=== PATIENT | female | born 1980 | race Caucasian/White ===

== ENCOUNTER 2017-08-21 09:42 | Emergency (ER) | payer MEDICAID ==
[~2017-08-21] VITALS: Ht 172.7 cm; Wt 70.8 kg
[2017-08-21 09:46] VITALS: Ht 172.7 cm; Wt 70.8 kg
[2017-08-21 12:34] LABS: CALCIUM 8.9 mg/dL (8.5-10.1); CARBON DIOXIDE 26.3 mmol/L (21-32); CHLORIDE SERUM 106 mmol/L (98-107); CREATININE SERUM 0.5 mg/dL (0.6-1.0); GFR1 > 60 mL/min; GLUCOSE SERUM 97 mg/dL (74-106); POTASSIUM SERUM 4.4 mmol/L (3.5-5.1); SODIUM SERUM 140 mmol/L (136-145)
[2017-08-21 12:39] LABS: ALBUMIN 3.7 g/dL (3.4-5.0); ALKALINE PHOSPHATASE 43 U/L (46-116); ALT/SGPT 22 U/L (14-59); AST/SGOT 12 U/L (15-37); BILIRUBIN TOTAL 0.34 mg/dL (0.20-1.00); TOTAL PROTEIN, SERUM 7.2 g/dL (6.4-8.2)
[2017-08-21 12:40] LABS: BASOPHIL % 0.5 % (0-2); PLATELET COUNT 234 x10^3mcL (130-400); RED CELL DISTRIBUTION WIDTH 14.4 % (11.5-14.5)
[2017-08-21 13:07] LABS: AMYLASE 51 U/L (25-115); LIPASE 144 IU/L (73-393)
[2017-08-21 13:40] VITALS: BP 113/69
[2017-08-21 13:40] LABS: UA SPECIFIC GRAVITY <=1.005 (1.005-1.035); microscopic required? YES; urine erythrocyte 3+ (NEGATIVE)
== END 2017-08-21 15:37 | disposition home or self-care (01) ==
LOC: ED 09:42
PROVIDERS: Emergency Medicine
DX: R10.31 Right lower quadrant pain (principal); R11.0 Nausea
CPT/HCPCS: J1885; J2405

== ENCOUNTER 2018-05-02 12:11 | Emergency (ER) | payer MEDICAID ==
[~2018-05-02] VITALS: Ht 160 cm; Wt 67.1 kg
[2018-05-02 12:16] VITALS: Ht 160 cm; Wt 67.1 kg
[2018-05-02 13:50] LABS: BASOPHIL % 0.3 % (0-2); PLATELET COUNT 243 x10^3mcL (130-400)
[2018-05-02 13:54] LABS: RED CELL DISTRIBUTION WIDTH 14.6 % (11.5-14.5)
[2018-05-02 14:01] LABS: CARBON DIOXIDE 24.8 mmol/L (21-32); CHLORIDE SERUM 105 mmol/L (98-107); CREATININE SERUM 0.4 mg/dL (0.6-1.0); GFR1 > 60 mL/min; GLUCOSE SERUM 81 mg/dL (74-106); POTASSIUM SERUM 3.5 mmol/L (3.5-5.1); SODIUM SERUM 139 mmol/L (136-145)
[2018-05-02 14:06] LABS: ALKALINE PHOSPHATASE 55 U/L (46-116); ALT/SGPT 20 U/L (14-59); AST/SGOT 11 U/L (15-37); BILIRUBIN TOTAL 0.3 mg/dL (0.20-1.00); TOTAL PROTEIN, SERUM 7.8 g/dL (6.4-8.2)
[2018-05-02 14:56] VITALS: BP 113/76
== END 2018-05-02 14:56 | disposition home or self-care (01) ==
LOC: ED 12:11
PROVIDERS: Emergency Medicine
DX: R00.2 Palpitations (principal); F43.9 Reaction to severe stress, unspecified
CPT/HCPCS: 36415; Q0092